=== PATIENT | female | born 1975 | race Caucasian/White ===

== ENCOUNTER 2018-10-28 09:22 | Emergency (ER) | payer OTHER | END 2018-10-28 13:33 | disposition home or self-care (01) | LOC: JER 09:22 ==

== ENCOUNTER 2022-07-11 19:29 | Emergency (ER) | payer OTHER ==
[2022-07-11 19:35] VITALS: BP 127/73; PULSE 82; RESP 18; TEMP 98; BMI 28.3
[2022-07-11 20:42] LABS: BASO % 0.7 % (0-2.0); EOS % 3.9 % (0-4.5); HEMATOCRIT 31.5 % (32.4-45.2); HEMOGLOBIN 10.7 GM/dL (10.7-15.3); MCH 28.6 pg (25.7-33.7); MCHC 33.9 g/dl (32.0-36.0); MEAN CELL VOLUME 84.6 fl (80-96); MEAN PLT VOLUME 7.5 fl (7.5-11.1); MONO % 8.8 % (3.8-10.2); NEUT % 55.6 % (42.8-82.8); PLATELET COUNT 323 10^3/uL (134-434); RBC 3.73 M/mm3 (3.60-5.2); RDW 14.9 % (11.6-15.6)
[2022-07-11 20:54] LABS: INR 0.92 (0.83-1.09); PROTHROMBIN TIME (PATIENT) 10.7 SEC (9.7-13.0)
[2022-07-11 20:56] LABS: ACTIVATED PTT 28.6 SECONDS (25.2-36.5)
[2022-07-11 21:09] LABS: CALCIUM 8.4 mg/dL (8.5-10.1)
[2022-07-11 21:10] LABS: ALBUMIN 3.4 g/dl (3.4-5.0); BLOOD UREA NITROGEN 12.2 mg/dL (7-18)
[2022-07-11 21:13] LABS: CREATININE 0.6 mg/dL (0.55-1.3)
[2022-07-11 21:14] LABS: BILIRUBIN,TOTAL 0.2 mg/dL (0.2-1); TOT PROT 6.4 g/dl (6.4-8.2)
== END 2022-07-11 23:28 | disposition home or self-care (01) ==
LOC: JER 19:29
DX: R22.42 Localized swelling, mass and lump, left lower limb (principal); R60.0 Localized edema
CPT/HCPCS: 36415; 71045-TC-FY; 80053; 83880; 84484; 85025; 85610; 85730; 93005; 93010; 93970-TC; 99285-25

== ENCOUNTER 2023-07-27 15:08 | Emergency (ER) | payer BC, OTHER ==
[2023-07-27 15:25] VITALS: BP 121/71; PULSE 73; RESP 18; TEMP 98; BMI 29.2
[2023-07-27] MEDS ORDERED: KETOROLAC TROMETHAMINE 15 MG/ML VIAL ONE (16:42)
[2023-07-27] MEDS: KETOROLAC TROMETHAMINE 15 MG/ML VIAL IVPUSH ONE (16:59)
[2023-07-27] MEDS ORDERED: ACETAMINOPHEN INJECTION 100 ML IVPB ONE (17:00)
[2023-07-27] MEDS: ACETAMINOPHEN 1000 MG/100 ML BAG IVPB ONE (17:06)
[2023-07-27 17:18] LABS: BASO % 0.4 % (0-2.0); EOS % 1.4 % (0-4.5); HEMATOCRIT 36.5 % (32.4-45.2); HEMOGLOBIN 12.1 GM/dL (10.7-15.3); LYMPH % 14.9 % (8-40); MCH 25.9 pg (25.7-33.7); MCHC 33.1 g/dl (32.0-36.0); MEAN CELL VOLUME 78.4 fl (80-96); MEAN PLT VOLUME 7.7 fl (7.5-11.1); MONO % 9.2 % (3.8-10.2); NEUT % 74.1 % (42.8-82.8); PLATELET COUNT 345 10^3/uL (134-434); RBC 4.65 M/mm3 (3.60-5.2); RDW 20.7 % (11.6-15.6); WHITE BLOOD COUNT 6.3 K/mm3 (4.0-10.0)
[2023-07-27 17:34] LABS: POTASSIUM 3.6 mmol/L (3.5-5.1)
[2023-07-27 17:36] LABS: CALCIUM 8.5 mg/dL (8.5-10.1)
[2023-07-27 17:37] LABS: ALBUMIN 3.7 g/dl (3.4-5.0); BLOOD UREA NITROGEN 12.2 mg/dL (7-18)
[2023-07-27 17:40] LABS: CREATININE 0.7 mg/dL (0.55-1.3)
[2023-07-27 17:41] LABS: BILIRUBIN,TOTAL 0.6 mg/dL (0.2-1)
[2023-07-27 17:45] LABS: ANISOCYTOSIS 2+; MACROCYTOSIS 2+
[2023-07-27 18:14] LABS: EPI CELLS 86.1 /uL (0-25.1); PH,URINE 5.5 (5.0-8.0); URINE APPEARANCE CLOUDY; URINE BILIRUBIN SMALL (NEGATIVE); URINE COLOR DK YELLOW; URINE GLUCOSE (UA) NEGATIVE (NEGATIVE); URINE KETONE TRACE (NEGATIVE); URINE LEUK ESTERASE NEGATIVE (NEGATIVE); URINE NITRITE NEGATIVE (NEGATIVE); URINE PROTEIN 30 (NEGATIVE); URINE RBC 44.3 /uL (0-23.9); URINE WBC 24.5 /uL (0-25.8)
[2023-07-27 18:15] LABS: HYALINE CASTS 3.66 /uL (0-3.1); URINE BACTERIA 584.9 /uL (0-1359)
== END 2023-07-27 19:18 | disposition home or self-care (01) ==
LOC: JER 15:08
PROC: 3E033NZ Introduction of Analgesics, Hypnotics, Sedatives into Peripheral Vein, Percutaneous Approach (ICD-10-PCS; principal; 2023-07-27)
DX: R07.89 Other chest pain (principal); R10.9 Unspecified abdominal pain; R14.0 Abdominal distension (gaseous); R50.9 Fever, unspecified; M79.10 Myalgia, unspecified site; Z20.822 Contact with and (suspected) exposure to COVID-19
CPT/HCPCS: 0241U-QW; 36415; 71046-TC-FY; 80053; 81003; 83690; 84484; 84703; 85025; 87086; 93005; 93010; 99285-25; J0131

== ENCOUNTER 2023-10-26 14:12 | Emergency (ER) | payer BC ==
[2023-10-26 14:22] VITALS: BP 106/63; PULSE 77; RESP 18; TEMP 98; BMI 29.1
[2023-10-26] MEDS ORDERED: ACETAMINOPHEN 325 MG TABLET (FP) ONE (16:13)
[2023-10-26] MEDS: ACETAMINOPHEN 325 MG TABLET (FP) PO ONE (16:24)
[2023-10-26 16:30] LABS: BASO % 0.8 % (0-2.0); EOS % 3.1 % (0-4.5); HEMOGLOBIN 13.1 GM/dL (10.7-15.3); LYMPH % 21.2 % (8-40); MCH 28.4 pg (25.7-33.7); MCHC 33.6 g/dl (32.0-36.0); MEAN CELL VOLUME 84.8 fl (80-96); MEAN PLT VOLUME 7.9 fl (7.5-11.1); MONO % 6.1 % (3.8-10.2); NEUT % 68.8 % (42.8-82.8); PLATELET COUNT 379 10^3/uL (134-434); RDW 18.4 % (11.6-15.6); WHITE BLOOD COUNT 8.7 K/mm3 (4.0-10.0)
[2023-10-26 16:36] LABS: INR 1.04 (0.83-1.09); PROTHROMBIN TIME (PATIENT) 11.9 SEC (9.7-13.0)
[2023-10-26 16:51] LABS: POTASSIUM 3.8 mmol/L (3.5-5.1)
[2023-10-26 16:53] LABS: ALBUMIN 4.2 g/dl (3.4-5.0); BLOOD UREA NITROGEN 14.2 mg/dL (7-18); CALCIUM 9.3 mg/dL (8.5-10.1)
[2023-10-26 16:57] LABS: BILIRUBIN,TOTAL 0.6 mg/dL (0.2-1); CREATININE 0.7 mg/dL (0.55-1.3); TOT PROT 7.7 g/dl (6.4-8.2)
[2023-10-26] MEDS ORDERED: IBUPROFEN 600 MG TABLET (FP) PO ONE (17:40)
[2023-10-26] MEDS: IBUPROFEN 600 MG TABLET (FP) PO ONE (17:45)
== END 2023-10-26 17:50 | disposition home or self-care (01) ==
LOC: JER 14:12
DX: R55 Syncope and collapse (principal); R51.9 Headache, unspecified; M54.6 Pain in thoracic spine; W01.198A Fall on same level from slipping, tripping and stumbling with subsequent striking against other object, initial encounter
CPT/HCPCS: 36415; 70450-TC; 72125-TC; 80053; 83735; 84484; 84703; 85025; 85610; 93005; 93010; 99285-25